=== PATIENT | female | born 1950 | race Caucasian/White ===

== ENCOUNTER 2022-08-31 19:29 | Emergency (ER) | payer MEDICARE, BC ==
[2022-08-31] MEDS ORDERED: ONDANSETRON ODT 4 MG TABLET TL STA (19:38)
[2022-08-31 19:58] LABS: BASOPHILS % (AUTO) 0.3 %; EOSINOPHILS # (AUTO) 0.1 10^3/uL (0.0-0.7); HCT - HEMATOCRIT 35.3 % (37.0-47.0); HGB - HEMOGLOBIN 11.5 g/dL (12.0-16.0); LYMPHOCYTES # (AUTO) 0.7 10^3/uL (1.5-3.5); LYMPHOCYTES % (AUTO) 6.6 %; MEAN CORPUSCULAR HEMOGLOBIN 32.1 pg (27.0-31.0); MEAN CORPUSCULAR HGB CONC 32.6 g/dL (32.0-36.0); MEAN CORPUSCULAR VOLUME 98.6 fL (81.0-99.0); MEAN PLATELET VOLUME 9.7 fL (7.9-10.8); MONOCYTES # (AUTO) 0.5 10^3/uL (0.0-1.0); MONOCYTES % (AUTO) 5.2 %; NEUTROPHILS % (AUTO) 86.5 %; PLT - PLATELET COUNT 224 10^3/uL (130-450); RED BLOOD COUNT 3.58 10^6/uL (4.20-5.40); RED CELL DISTRIBUTION WIDTH 12.7 % (12.0-15.0); WHITE BLOOD COUNT 10.4 x10^3/uL (4.8-10.8)
[2022-08-31 20:11] LABS: ALBUMIN 4.2 g/dL (3.2-5.5); ALBUMIN/GLOBULIN RATIO 1.5 (1.0-2.2); BILIRUBIN,TOTAL 0.4 mg/dL (0.2-1.0); CALCIUM 10.1 mg/dL (8.5-10.3); CREATININE 1.2 mg/dL (0.4-1.0); POTASSIUM 3.9 mmol/L (3.5-5.0)
[2022-08-31] MEDS ORDERED: iohexoL-300 100 ML VIAL ONE (20:19)
--- NOTE | 2022-08-31 21:18 | ED Physician Documentation ---
PD HPI ABD PAIN - Stated complaint Stated Complaint: RT ABDOMINAL PX - Chief complaint Chief Complaint: Abd Pain - History obtained from History obtained from: Patient, Family - History of Present Illness Timing - onset: How many hours ago (2), Today Timing - duration: Hours (2) Timing - details: Abrupt onset, Still present Quality: Cramping, Aching, Pain Location: RLQ Radiation: Lower back Improved by: Laying still Worsened by: Moving, Palpation. No: Breathing Associated symptoms: Nausea, Loss of appetite. No: Fever, Diarrhea, Constipation, Dysuria Similar symptoms before: Has not had sx before Recently seen: Not recently seen Review of Systems Constitutional: denies: Fever, Chills Nose: denies: Rhinorrhea / runny nose, Congestion Throat: denies: Sore throat Cardiac: denies: Chest pain / pressure Respiratory: denies: Dyspnea, Cough GI: reports: Abdominal Pain, Nausea. denies: Vomiting, Diarrhea : denies: Dysuria, Discharge, Vaginal bleeding Skin: denies: Rash, Lesions Musculoskeletal: denies: Neck pain, Extremity swelling Neurologic: reports: Generalized weakness. denies: Near syncope, Altered mental status, Headache PD PAST MEDICAL HISTORY - Past Medical History Cardiovascular: None Respiratory: None - Present Medications Home Medications: Ambulatory Orders Medication Instructions Recorded Confirmed Alendronate Sodium 70 08/31/22 HYDROcod/ACETAM 5/325 [[place] 5/325] 1 ea PO Q6H PRN #18 tablet 08/31/22 Ipratropium Seale 2 spray 08/31/22 Letrozole 2.5 mg PO DAILY 08/31/22 08/31/22 Ondansetron Odt [Zofran] 4 mg TL Q6H PRN #10 tablet 08/31/22 Tamsulosin [Flomax] 0.4 mg PO DAILY #5 cap 08/31/22 - Allergies Allergies/Adverse Reactions: Allergies Allergy/AdvReac Type Severity Reaction Status Date / Time erythromycin base Allergy Emesis Verified 08/31/22 19:37 - Living Situation Living Situation: reports: With family Living Arrangement: reports: At home PD ED PE NORMAL - Vitals Vital signs reviewed: Yes - General General: Alert and oriented X 3, Well developed/nourished, Other (appears in pain. Holding still in supine position for comfort. ) - Neck Neck: Supple, no meningeal sign, No adenopathy - Cardiac Cardiac: RRR, No murmur - Respiratory Respiratory: No respiratory distress, Clear bilaterally - Abdomen Abdomen: Normal bowel sounds, Non distended, No organomegaly, Other (very tender with guarding RLQ area. Some percussion tenderness. ) - Female Female : Deferred - Rectal Rectal: Deferred - Back Back: No spinal TTP, Other (right CVA tender) - Derm Derm: Normal color, No rash - Extremities Extremities: Normal ROM s pain, No edema, No calf tenderness / cord - Neuro Neuro: Alert and oriented X 3, No motor deficit, Normal speech Eye Opening: Spontaneous Motor: Obeys Commands Verbal: Oriented GCS Score: 15 Results - Vitals Vitals: Vital Signs - 24 hr 08/31/22 08/31/22 23:03 23:38 Temperature 35.8 C L 36.5 C Heart Rate 79 78 Respiratory 16 18 Rate Blood Pressure 135/61 H 124/67 O2 Saturation 100 97 Oxygen O2 Source Room air - Labs Labs: Laboratory Tests 08/31/22 08/31/22 08/31/22 19:52 19:52 22:43 WBC 10.4 RBC 3.58 L Hgb 11.5 L Hct 35.3 L MCV 98.6 MCH 32.1 H MCHC 32.6 RDW 12.7 Plt Count 224 MPV 9.7 Neut # (Auto) 9.0 H Lymph # (Auto) 0.7 L [place] # (Auto) 0.5 Eos # (Auto) 0.1 Baso # (Auto) 0.0 Absolute Nucleated RBC 0.00 Nucleated RBC % 0.0 Sodium 141 Potassium 3.9 Chloride 107 Carbon Dioxide 25 Anion Gap 9.0 BUN 25 H Creatinine 1.2 H Estimated GFR (MDRD) 44 L Glucose 173 H Calcium 10.1 Total Bilirubin 0.4 AST 45 H ALT 42 Alkaline Phosphatase 53 Total Protein 7.0 Albumin 4.2 Globulin 2.8 Albumin/Globulin Ratio 1.5 Lipase 43 Urine Color YELLOW Urine Clarity CLEAR Urine pH 7.0 Ur Specific [place] 1.010 Urine Protein NEGATIVE Urine Glucose (UA) NEGATIVE Urine Ketones TRACE Urine Occult Blood MODERATE H Urine Nitrite NEGATIVE Urine Bilirubin NEGATIVE Urine Urobilinogen 0.2 (NORMAL) Ur Leukocyte Esterase NEGATIVE Urine RBC TNTC H Urine WBC 0-3 Ur Squamous Epith Cells RARE Squamous Urine Bacteria None Seen Ur Microscopic Review INDICATED Urine Culture Comments NOT INDICATED - Rads (name of study) abd/pelvic CT Radiology: Prelim report reviewed (small ureteral stone right side 3 mm at UVJ. Normal appendix. No other acute. ), EMP read contemporaneously PD MEDICAL DECISION MAKING - ED course Complexity details: reviewed results, re-evaluated patient (much improved with IV meds. Feeling comfortable now. ), considered differential, d/w patient, d/w family Departure - Departure Disposition: 01 Home, Self Care Clinical Impression: Kidney stone on right side Condition: Stable Record reviewed to determine appropriate education?: Yes Instructions: ED Stone Renal W Colic Prescriptions: Tamsulosin [Flomax] 0.4 mg PO DAILY #5 cap HYDROcod/ACETAM 5/325 [[place] 5/325] 1 ea PO Q6H PRN #18 tablet PRN Reason: Pain Ondansetron Odt [Zofran] 4 mg TL Q6H PRN #10 tablet PRN Reason: Nausea / Vomiting Comments: You do have a 3 mm kidney stone on the right ureter almost to the bladder. This has a very high probability of passing on its own within the next day or 2. Stay well-hydrated but you do not have to over hydrate. Tylenol 500 mg 4 times daily. To that add ibuprofen or naproxen 2 to 3 tablets twice daily for pain. Tamsulosin is a medication to help reduce ureteral spasms. This is taken daily for the next few days until the stone seems to pass. Add ondansetron every 6 hours if needed for nausea. I also prescribed hydrocodone opiate pain medicine to use every 4-6 hours if needed for worse pain. Follow-up with your primary care if it does not seem resolved over the next 2 to 3 days. This will be noted by essentially lack of any pain for a period of time. I am prescribing a short course of narcotic pain medication for you. These are potentially dangerous and addictive medications that should be used carefully. These medications may constipate you. Take an [id number] stool softener such as docusate twice daily with plenty of water while taking these medications. If you go 24 hours without a bowel movement, take [id number] MiraLAX, per package instructions. Do not drink or drive while taking these medications. If you received narcotic or sedating medications while in the emergency department do not drive for 24 hours. Store this medication in a safe, secure place and out of reach of children. It is a violation of federal law to give or sell this medication to another person or to use in a manner other than prescribed. The ED will not refill narcotic prescriptions, including prescriptions lost or stolen. You can dispose of unwanted medications at the [facility]'s office or at several pharmacies such as [facility]. Discharge Date/Time: 09/01/22 00:00
[2022-08-31] MEDS ORDERED: HYDROmorphone 0.5 MG/0.5 ML SYRINGE IVP STA (21:31)
[2022-08-31] MEDS ORDERED: ONDANSETRON 4 MG/2 ML VIAL IVP STA (21:31)
[2022-08-31] MEDS ORDERED: SODIUM CHLORIDE 0.9% 1,000 ML IV STA (21:31)
[2022-08-31] MEDS ORDERED: iohexoL-300 100 ML VIAL IVP ONE (22:40)
--- NOTE | 2022-08-31 22:55 | CT Report ---
PROCEDURE: ABDOMEN/PELVIS W INDICATIONS: RLQ abd pain CONTRAST: 100 ML OMNI 300 TECHNIQUE: After the administration of contrast, 5 mm thick sections acquired from the diaphragms to the sym physis. 5 mm thick coronal and sagittal reformats were acquired. For radiation dose reduction, the following was used: automated exposure control, adjustment of mA and/or kV according to patient size . COMPARISON: None. FINDINGS: Image quality: Excellent. ABDOMEN: Lung bases: Lung bases are clear. Heart size is normal. Right breast implant. Solid organs: Liver and spleen are normal in size and enhancement. Gallbladder appears normal Bili cristobal system is non dilated. Pancreas enhances normally. No adrenal nodules. Kidneys demonstrate nor mal size but asymmetric enhancement, reduced on the right with associated moderate hydronephrosis and hydroureter. This is secondary to a far distal right ureteral stone at the bladder margin measuring 3 x 3 mm. Peritoneum and bowel: Bowel loops demonstrate normal wall thickness and caliber. No free fluid or a ir. Nodes and vessels: No retroperitoneal or mesenteric adenopathy by size criteria. Aorta and inferior vena cava are normal in size. Miscellaneous: No ventral hernias. PELVIS: Genitourinary: Bladder wall thickness is normal. Miscellaneous: No inguinal hernias or adenopathy. Bones: No suspicious bony lesions. No vertebral body compression fractures. IMPRESSION: Impacted far distal right ureteral stone causing moderate right hydronephrosis and asymm etric mildly reduced perfusion into the right renal cortex. No suspicion for concurrent appendicitis is present. Reviewed by: Jase Noonan MD on 08/31/2022 10:53 PM PDT Approved by: Jase Noonan MD on 08/31/2022 10:53 PM PDT Station ID: [id number]
[2022-08-31] MEDS ORDERED: KETOROLAC 15 MG/ML VIAL IVP STA (23:00)
[2022-08-31 23:05] LABS: BILIRUBIN,URINE NEGATIVE (NEGATIVE); GLUCOSE, URINE (UA) NEGATIVE (NEGATIVE); KETONES,URINE (UA) TRACE mg/dL (NEGATIVE); LEUKOCYTE ESTERASE, URINE NEGATIVE (NEGATIVE); NITRITE,URINE NEGATIVE (NEGATIVE); OCCULT BLOOD,URINE MODERATE (NEGATIVE); PROTEIN,URINE NEGATIVE (NEGATIVE); UROBILINOGEN,URINE 0.2 (NORMAL) E.U./dL (NORMAL)
[2022-08-31 23:06] LABS: CLARITY,URINE CLEAR (CLEAR)
[2022-08-31 23:13] LABS: BACTERIA,URINE None Seen /HPF (None Seen); RBC,URINE TNTC /HPF (0-5); SQUAMOUS EPITHELIAL CELL,UR RARE Squamous (<= Few); WBC,URINE 0-3 /HPF (0-5)
[2022-08-31] MEDS ORDERED: KETOROLAC 15 MG/ML VIAL IM STA (23:18)
[2022-08-31] MEDS ORDERED: ONDANSETRON ODT 4 MG Prepack 2 TL PRN (23:21)
[2022-08-31] MEDS ORDERED: TAMSULOSIN 0.4 MG CAPSULE PO STA (23:21)
[2022-08-31] MEDS ORDERED: HYDROcod/ACET 5/325 Prepack 4 PO STA (23:21)
[2022-08-31 23:40] VITALS: BP 124/67
== END 2022-09-01 | disposition home or self-care (01) ==
LOC: ED 19:29
DX: N20.0 Calculus of kidney (principal)
CPT/HCPCS: 36415; 74177; 80053; 81001; 83690; 85025; 96361; 96372; 96374; 96375; 99282; 99284; A9270; J1170; Q0162; Q9967; 81003; 87086